=== PATIENT | male | born 1960 | race Caucasian/White ===

== ENCOUNTER → 2021-03-27 | Outpatient (CLI) | payer BC ==
[~2021-03-27] MED LIST: IBUPROFEN600 MG PO
== END ==
LOC: HEART 5 07:30
DX: R07.9 Chest pain, unspecified (principal)
CPT/HCPCS: 78452; A9502

== ENCOUNTER 2021-09-29 12:53 | Inpatient (IN) | payer BC ==
[~2021-09-29] VITALS: Ht 177.8 cm; Wt 83.9 kg
[2021-09-29 15:06] LABS: HEMOGLOBIN 15.2 gm/dl (14.0-17.5); RED BLOOD COUNT 5.01 M/UL (4.20-5.50); WHITE BLOOD COUNT 8.4 K/UL (4.5-11.0)
[2021-09-29 15:32] LABS: BUN/CREATININE RATIO 14 (0-10)
[2021-09-30 06:41] LABS: HEMOGLOBIN 14.1 gm/dl (14.0-17.5); RED BLOOD COUNT 4.65 M/UL (4.20-5.50)
[2021-09-30 06:47] LABS: WHITE BLOOD COUNT 5.8 K/UL (4.5-11.0)
[2021-09-30 07:24] LABS: BUN/CREATININE RATIO 17 (0-10)
[2021-10-01 04:16] LABS: HEMOGLOBIN 14.4 gm/dl (14.0-17.5); RED BLOOD COUNT 4.82 M/UL (4.20-5.50); WHITE BLOOD COUNT 6.9 K/UL (4.5-11.0)
[2021-10-01 04:29] LABS: BUN/CREATININE RATIO 15 (0-10)
[2021-10-02 05:13] LABS: HEMOGLOBIN 14.7 gm/dl (14.0-17.5); RED BLOOD COUNT 4.86 M/UL (4.20-5.50); WHITE BLOOD COUNT 6.5 K/UL (4.5-11.0)
[2021-10-02 06:31] LABS: BUN/CREATININE RATIO 14 (0-10)
[2021-10-02] MEDS ORDERED: AMOX TR-K CLV1 EAC4 PO (09:10)
[2021-10-02] MEDS ORDERED: BACTRIM DS TAB1 EACH PO (09:10)
== END 2021-10-02 10:08 | disposition home or self-care (01) | DRG 125 ==
LOC: ER1 12:53 → CDU 20:34 → MED SURG 4 20:34
PROVIDERS: Internal Medicine; Physician Assistant Medical; ADMIT Internal Medicine
DX: H00.035 Abscess of left lower eyelid (principal); L03.213 Periorbital cellulitis; H04.302 Unspecified dacryocystitis of left lacrimal passage; Z20.822 Contact with and (suspected) exposure to COVID-19; Z82.49 Family history of ischemic heart disease and other diseases of the circulatory system; Z88.1 Allergy status to other antibiotic agents
CPT/HCPCS: 36415; 70487; 80048; 80053; 80202; 83735; 85025; 85027; 85652; 86140; 99284; J0690; J2543; J3370; J7070; Q9967